=== PATIENT | female | born 2000 | race African-American/Black ===

== ENCOUNTER 2022-06-16 21:37 | Emergency (ER) | payer BC, SELFPAY ==
[2022-06-16] MEDS ORDERED: Ondansetron PF 4 MG/2 ML Vial ONE (21:56)
[2022-06-16] MEDS ORDERED: Acetaminophen 500 MG TAB ONE (21:56)
[2022-06-16] MEDS ORDERED: diphenhydrAMINE 50 MG/ML VIAL ONE (21:56)
== END 2022-06-16 22:53 | disposition home or self-care (01) ==
LOC: CSHERS 21:37
DX: G43.909 Migraine, unspecified, not intractable, without status migrainosus (principal)
CPT/HCPCS: 96374; 96375; J1200; J2405